=== PATIENT | female | born 1935 | race Caucasian/White ===

== ENCOUNTER 2016-08-16 08:29 | Day surgery (SDC) | payer MEDICARE, OTHER ==
[~2016-08-16 08:29] MED LIST: ABAT250I IV; AZU500 PO; CARB30DR12 OP; CITA10TA9 PO; ESOM40CA41 PO; EZET10TA PO; GABA600T2 PO; HYDR200T5 PO; IMI100 PO; LEFL20TA18 PO; LOSA1TAB3 PO; METO25TA99 PO; METR59LO TOP; POT25TAB5 PO; PROC10TA PO; RANI150C4 PO; TOFA5TAB PO
[2016-08-16] MEDS ORDERED: MethylprednisoLONE Depot 80 mg/mL Inj ONE (08:30)
[2016-08-16] MEDS ORDERED: Iohexol 240 mg/mL 10 mL Inj ONE (08:30)
[2016-08-16 08:37] VITALS: BP 144/95; PULSE 103; RESP 20
--- NOTE | 2016-08-16 16:31 | PCM.PROC ---
Procedure Note Date of Service: Aug 16, 2016 Pre Procedure Diagnosis: PROCEDURE: Lumbar Interlaminar epidural steroid injection. L3-L4 ASA / ANTI-COAGULATION . No asa x 7 days. PRE-PROCEDURE DIAGNOSIS: 81-year-old female with low back and leg pain consistent with lumbar spinal stenosis POST-PROCEDURE DIAGNOSIS: same INDICATION: Lumbar spinal stenosis PERFORMED BY: Castro Lackey MD DESCRIPTION OF PROCEDURE: Patient was met in the holding area. Consent was signed, site was confirmed and all questions were answered. Patient was taken to the procedure suite and placed prone on the procedure table.The appropriate time out in the OR was performed confirming the patient's name, date of , planned procedure, and presence of the appropriate instrumentation. Area was prepped and draped in sterile fashion. Local anesthesia with 1% lidocaine was injected. An 18-gauge Tuohy needle was advanced toward the interlaminar space using fluoroscopic guidance after optimizing the AP view. A loss of resistance syringe was attached as we approached the epidural space in the lateral view. After [id number] was obtained, radiopaque contrast was injected under live fluro which confirmed epidural placement without intravascular uptake. Then , 80 mg depomedrol was injected without difficulty. ANESTHESIA: Local. EBL: None. No Blood Products Used COMPLICATIONS: None SPECIMENS: None POST-PROCEDURE DISPOSITION: Patient was returned to the holding area in stable condition. They were discharged home when all discharge criteria were met. Evaluation/Physical Exam before discharge revealed: DISCHARGE MEDICATIONS: None FOLLOW UP: Keep appointment for sacroiliac joint injection Castro Lackey MD * Pain Management * Anesthesiology .ED: Y: Patient given care and follow up instructions Castro Lackey MD Aug 16, 2016 16:31
[2016-08-29] MEDS ORDERED: METH5TAB3 PO (14:46)
== END 2016-08-16 23:59 | disposition home or self-care (01) ==
LOC: END 08:29
PROVIDERS: ATTEND Anesthesiology Pain Medicine
DX: M48.06 Spinal stenosis, lumbar region (principal); G89.4 Chronic pain syndrome; I10 Essential (primary) hypertension; R41.3 Other amnesia; E78.5 Hyperlipidemia, unspecified; M19.90 Unspecified osteoarthritis, unspecified site; M05.9 Rheumatoid arthritis with rheumatoid factor, unspecified; Z79.891 Long term (current) use of opiate analgesic
CPT/HCPCS: 62323; J1040

== ENCOUNTER 2016-08-30 08:23 | Day surgery (SDC) | payer MEDICARE, OTHER ==
[~2016-08-30] VITALS: Ht 157.5 cm; Wt 59.0 kg
[~2016-08-30 08:23] MED LIST changes: -ABAT250I IV; -HYDR200T5 PO; +METH5TAB3 PO
[2016-08-30] MEDS ORDERED: Bupivacaine-MPF 0.25% 30 mL Inj ONE (08:24)
[2016-08-30] MEDS ORDERED: Iohexol 240 mg/mL 10 mL Inj ONE (08:24)
[2016-08-30] MEDS ORDERED: MethylprednisoLONE Depot 80 mg/mL Inj ONE (08:24)
--- NOTE | 2016-08-30 16:24 | PCM.PROC ---
Procedure Note Date of Service: Aug 30, 2016 Pre Procedure Diagnosis: PROCEDURE: LEFT Sacroiliac joint injection (fluoroscopically guided) PRE-PROCEDURE DIAGNOSIS: Sacroiliitis POST-PROCEDURE DIAGNOSIS: same INDICATION: 81-year-old female with LEFT posterior pain consistent with sick ileitis ASA / ANTICOAGULATION: No asa x 7 days PERFORMED BY: Castro Lackey MD DESCRIPTION OF PROCEDURE: Patient was met in the holding area. Consent was signed, site was confirmed and all questions were answered. Patient was taken to the procedure suite and placed prone on the procedure table. Local anesthesia with 1% lidocaine was injected into the epidermidis and dermis. A 22-gauge Quincke spinal needle was advanced towards the sacroiliac joint after visualization was optimized fluoroscopically in the AP view. Proper positioning in the joint was confirmed by injecting contrast. We then took a lateral view to reconfirm proper positioning in the sacroiliac joint. 40mg depomedrol with 2.5cc of 0.25% Bupivicaine injected without difficulty. ANESTHESIA: Local. EBL: None. No Blood Products Used COMPLICATIONS: None SPECIMENS: None POST-PROCEDURE DISPOSITION: Patient tolerated the procedure well was returned to the holding area in stable condition. They were discharged home when all discharge criteria were met. Fluro time: See Radiology Report Evaluation/Physical Exam before discharge revealed: DISCHARGE MEDICATIONS: none FOLLOW UP: Keep scheduled followup Castro Thrasher MD, MD Aug 30, 2016 16:24
== END 2016-08-30 23:59 | disposition home or self-care (01) ==
LOC: END 08:23
PROVIDERS: ATTEND Anesthesiology Pain Medicine
DX: M46.1 Sacroiliitis, not elsewhere classified (principal); G89.4 Chronic pain syndrome
CPT/HCPCS: G0260; J1040